=== PATIENT | male | born 1995 | race Caucasian/White ===

== ENCOUNTER → 2016-06-29 | Outpatient (CLI) | payer OTHER ==
[~2016-06-29] MED LIST: CLXUNK; FLX10 PO
--- NOTE | 2016-06-29 11:21 | DIAGNOSTIC IMAGING REPORT ---
KUB CLINICAL HISTORY: Renal calculus COMPARISON STUDY: No previous studies for comparison. FINDINGS: There is no pathologic bowel dilatation. No renal or ureteral calculi are visualized on conventional radiographic imaging. IMPRESSION: No urinary tract calculi are visualized on conventional radiographic imaging Electronically signed by: Matthias Kebede M.D. 06/29/2016 11:19 AM
--- NOTE | 2016-06-29 11:50 | DIAGNOSTIC IMAGING REPORT ---
TESTICULAR ULTRASOUND CLINICAL HISTORY: Testicular pain COMPARISON STUDY: No previous studies for comparison. FINDINGS: The right testis measures 45 x 26 x 31 mm. The left testis measures 49 x 24 x 29 mm. No intratesticular masses were visualized. There is no evidence of testicular torsion. The left epididymis was somewhat bulbous, but there was no evidence of hyperemia. IMPRESSION: 1. No evidence of intratesticular mass 2. No evidence of testicular torsion Electronically signed by: Matthias Kebede M.D. 06/29/2016 11:48 AM
== END | disposition home or self-care (01) ==
LOC: C.RAD 10:45
PROVIDERS: ATTEND Nurse Practitioner Adult Health
DX: R30.0 Dysuria (principal); N20.0 Calculus of kidney; N50.819 Testicular pain, unspecified